=== PATIENT | male | born 1955 ===

== ENCOUNTER 2018-09-11 05:51 | Observation (INO) ==
[2018-09-11] MEDS ORDERED: PANTOPRAZOLE INJ 80 MG in SODIUM CHLORIDE 0.9% 100 ML IV STA (06:03)
[2018-09-11 06:32] LABS: Basophils % 0.2 % (0.0-0.8); Eosinophils # 0.1 10*3/uL (0.0-0.87); Eosinophils % 0.5 % (0.00-10.9); Hematocrit 32.5 VOL% (42.0-52.0); Hemoglobin 10.6 GM/DL (14.0-18.0); Immature Granulocytes % 0.6 %; Immature Granulocytes Absolute 0.08 #; Lymphocytes # 0.7 10*3/uL (1.4-4.0); Lymphocytes % 5.3 % (21.2-54.2); Mean Corpuscular HGB Conc 32.6 GM/DL (32-36); Mean Corpuscular Volume 92.9 FL (87-102); Mean Platelet Volume 10.1 FL (9.6-12.0); Monocytes % 3.7 % (1.7-12.7); Neutrophils % 89.7 % (38.7-73.9); Platelet Count 171 T/CUMM (130-400); Red Cell Distribution Width 14.6 % (9.3-17.3); White Blood Count 12.9 T/CUMM (4-12)
[2018-09-11] MEDS ORDERED: SODIUM CHLORIDE 0.9% 1,000 ML IV STA (06:35)
[2018-09-11 06:40] LABS: INR 0.9; PT Patient Result 10.2 SECS; Partial Thromboplastin Time 23.3 SECS (0-40)
[2018-09-11] MEDS ORDERED: ONDANSETRON 4 MG/2 ML VIAL IV PRN (08:17)
[2018-09-11] MEDS ORDERED: traZODone 50 MG TABLET PO PRN (08:17)
[2018-09-11] MEDS ORDERED: ACETAMINOPHEN 325 MG TABLET PO PRN (08:17)
[2018-09-11] MEDS ORDERED: MAGNESIUM SULF RIDER 4 GM in PREMIX 1 EACH IV PRN (10:20)
[2018-09-11] MEDS ORDERED: MAGNESIUM SULF RIDER 2 GM in PREMIX 1 EACH IV PRN (10:20)
[2018-09-11] MEDS: PANTOPRAZOLE 40 MG TABLET PO SCH (12:01)
[2018-09-11 13:21] LABS: Hematocrit 29.7 VOL% (42.0-52.0); Hemoglobin 9.5 GM/DL (14.0-18.0)
[2018-09-11] MEDS ORDERED: GLUCAGON 1 MG VIAL IM PRN (15:26)
[2018-09-11] MEDS ORDERED: DEXTROSE 50% 25 GM/50 ML SYRINGE IV PRN (15:26)
[2018-09-11] MEDS: INSULIN LISPRO 100 UNIT/ML SUBCUT SCH ×2 (16:27→21:19)
[2018-09-11 18:10] LABS: Hematocrit 28.4 VOL% (42.0-52.0); Hemoglobin 9.3 GM/DL (14.0-18.0)
[2018-09-11 20:57] LABS: Apearance,Urine CLEAR (Clear); Bilirubin,Urine Negative (Negative); Blood, Urine Negative (Negative); Glucose,Urine (UA) Negative (Negative); Ketones,Urine Negative (Negative); Mucus,Urine Occasional /LPF (Occasional); Nitrite,Urine Negative (Negative); Protein,Urine Negative; Urine Color Yellow (Yellow); Urine Specific Gravity 1.015 (1.001-1.035); Urine Urobilinogen < 2.0 EU/DL (0.2-1.0); WBC,Urine <1 /HPF (0-6)
[2018-09-11] MEDS: SIMVASTATIN 20 MG TABLET PO SCH (21:19)
[2018-09-12 00:35] LABS: Hemoglobin 8.5 GM/DL (14.0-18.0)
[2018-09-12 05:30] LABS: Basophils % 0.1 % (0.0-0.8); Eosinophils # 0.2 10*3/uL (0.0-0.87); Hematocrit 27.6 VOL% (42.0-52.0); Immature Granulocytes % 0.7 %; Immature Granulocytes Absolute 0.05 #; Lymphocytes # 0.7 10*3/uL (1.4-4.0); Lymphocytes % 9.8 % (21.2-54.2); Mean Corpuscular HGB Conc 32.6 GM/DL (32-36); Mean Corpuscular Volume 92.9 FL (87-102); Mean Platelet Volume 10.3 FL (9.6-12.0); Monocytes % 6.9 % (1.7-12.7); Neutrophils % 80.5 % (38.7-73.9); Platelet Count 150 T/CUMM (130-400); Red Blood Count 2.97 MC/CUMM (3.8-5.5); Red Cell Distribution Width 14.5 % (9.3-17.3); White Blood Count 7.3 T/CUMM (4-12)
[2018-09-12 05:46] LABS: Calcium 8.1 MG/DL (8.5-10.1); Osmolality,Calculated 285.3 MOS/KG (273-304)
[2018-09-12] MEDS: INSULIN LISPRO 100 UNIT/ML SUBCUT SCH ×4 (07:57→21:17)
[2018-09-12] MEDS: ASPIRIN EC 81 MG TABLET PO SCH (08:28)
[2018-09-12] MEDS: METOPROLOL SUCCINATE XL 100 MG TABLET PO SCH (08:30)
[2018-09-12] MEDS: PANTOPRAZOLE 40 MG TABLET PO SCH (08:30)
[2018-09-12] MEDS: SIMVASTATIN 20 MG TABLET PO SCH (21:16)
[2018-09-13 02:26] LABS: Basophils % 0.3 % (0.0-0.8); Eosinophils # 0.2 10*3/uL (0.0-0.87); Eosinophils % 2.3 % (0.00-10.9); Hematocrit 25.8 VOL% (42.0-52.0); Hemoglobin 8.7 GM/DL (14.0-18.0); Immature Granulocytes % 0.7 %; Immature Granulocytes Absolute 0.05 #; Lymphocytes # 0.8 10*3/uL (1.4-4.0); Lymphocytes % 11.7 % (21.2-54.2); Mean Corpuscular HGB Conc 33.7 GM/DL (32-36); Mean Corpuscular Volume 91.2 FL (87-102); Mean Platelet Volume 10.2 FL (9.6-12.0); Platelet Count 155 T/CUMM (130-400); Red Blood Count 2.83 MC/CUMM (3.8-5.5); Red Cell Distribution Width 14.2 % (9.3-17.3)
[2018-09-13 02:50] LABS: Calcium 8.1 MG/DL (8.5-10.1); Osmolality,Calculated 288.3 MOS/KG (273-304)
[2018-09-13] MEDS: INSULIN LISPRO 100 UNIT/ML SUBCUT SCH ×2 (07:38→11:38)
[2018-09-13] MEDS: METOPROLOL SUCCINATE XL 100 MG TABLET PO SCH (09:34)
[2018-09-13] MEDS: PANTOPRAZOLE 40 MG TABLET PO SCH (09:34)
[2018-09-13] MEDS: ASPIRIN EC 81 MG TABLET PO SCH (09:34)
[2018-09-13 12:14] VITALS: BP 128/94
== END 2018-09-13 12:50 | disposition home or self-care (01) ==
LOC: N.ED 05:51 → N.EDINP 08:17 → INTOOBSV 08:17 → N.EDINP 11:15 → N.4E 11:29
PROVIDERS: ADMIT Internal Medicine; ATTEND Internal Medicine